=== PATIENT | male | born 1995 | race African-American/Black ===

== ENCOUNTER 2018-11-18 16:03 | Emergency (ER) | payer MEDICAID ==
[~2018-11-18] VITALS: Ht 185.4 cm; Wt 108.0 kg
[2018-11-18 16:25] VITALS: BP 135/79
--- NOTE | 2018-11-18 16:30 | NUR ---
ED Nurse Note: pt was brought in by ambulance for psychiatric evaluation, pt stated that he is seeking for psychiatric evaluation for recent diagnosis of schizophrenia, pt has been discharge from [facility] yesterday and was prescribed medication and pt stated he misplaced it and dosent remember was is the name of meds. ermd on bedside. will continue to monitor
[2018-11-18] MEDS ORDERED: SEROQUEL50 MG ORAL (16:47)
[2018-11-18] MEDS ORDERED: PROZAC10 MG ORAL (16:47)
--- NOTE | 2018-11-18 17:00 | NUR ---
ED Nurse Note: pt was able to give urine sample, blood drawn and was sent to [facility].
--- NOTE | 2018-11-18 17:11 | NUR ---
ED Nurse Note: attempted to call [facility] for pt previous discharge medication and charge nurse minna stated they cant give any information. claribel made aware.
[2018-11-18 17:15] LABS: APPEARANCE,URINE CLEAR; BILIRUBIN, URINE NEGATIVE (NEGATIVE); COLOR,URINE PALE YELLOW; GLUCOSE, URINE (UA) NEGATIVE (NEGATIVE); KETONES,URINE NEGATIVE (NEGATIVE); LEUKOCYTE ESTERASE ,URINE NEGATIVE (NEGATIVE); NITRITE,URINE NEGATIVE (NEGATIVE); PH,URINE 8 (4.5-8.0); PROTEIN,URINE NEGATIVE (NEGATIVE); UROBILINOGEN,URINE NORMAL MG/DL (0.0-1.0)
[2018-11-18 17:17] LABS: ANION GAP 9 mmol/L (5-15); BLOOD UREA NITROGEN 8 mg/dL (7-18); CALCIUM 9.3 MG/DL (8.5-10.1); CARBON DIOXIDE 30 MMOL/L (21-32); CHLORIDE 101 MMOL/L (98-107); CREATININE 1.1 MG/DL (0.55-1.30); POTASSIUM 3.8 MMOL/L (3.5-5.1); SODIUM 140 MMOL/L (136-145)
[2018-11-18 17:21] LABS: ALANINE AMINOTRANSFERASE 146 U/L (12-78); ALBUMIN 3.9 G/DL (3.4-5.0); ALBUMIN/GLOBULIN RATIO 1.1 (1.0-2.7); ALKALINE PHOSPHATASE 71 U/L (46-116); ASPARTATE AMINO TRANSFERASE 74 U/L (15-37); BILIRUBIN,TOTAL 0.5 MG/DL (0.2-1.0)
[2018-11-18] MEDS ORDERED: LORazepam 1mg tab ORAL ONE (17:30)
[2018-11-18 17:32] LABS: BASOPHILS % (AUTO) 0.7 % (0.0-2.0); EOSINOPHILS % (AUTO) 0.2 % (0.0-3.0); HEMATOCRIT 43.9 % (42.0-52.0); HEMOGLOBIN 14.7 G/DL (14.2-18.0); LYMPHOCYTES % (AUTO) 29.8 % (20.0-45.0); MEAN CORPUSCULAR VOLUME 92 FL (80-99); MONOCYTES % (AUTO) 8.9 % (1.0-10.0); NEUTROPHILS % (AUTO) 60.4 % (45.0-75.0); PLATELET COUNT 205 K/UL (150-450); RED BLOOD COUNT 4.76 M/UL (4.70-6.10); RED CELL DISTRIBUTION WIDTH 11.6 % (11.6-14.8); WHITE BLOOD COUNT 7.7 K/UL (4.8-10.8)
--- NOTE | 2018-11-18 17:40 | NUR ---
ED Nurse Note: pt medicated as ordered and tolerated well.
--- NOTE | 2018-11-18 19:00 | NUR ---
ED Nurse Note: pt belongings on locker 1
--- NOTE | 2018-11-18 19:01 | Emergency Room Report ---
History of Present Illness General Chief Complaint: Behavioral Complaint Source: Patient, EMS Present Illness HPI 23-year-old male presents ED for evaluation. Patient brought in by EMS from home. Patient notes history of schizophrenia and states that he has been hearing voices. Denies SI or HI. States that he was discharged from [facility] today. Was there for 6 days. States that he does not know what medications he was given. States that he lost his medications. Denies alcohol or drug use. No other aggravating relieving factors. Denies any other associated symptoms Allergies: Coded Allergies: No Known Allergies (Unverified , 11/18/18) Patient History Past Medical History: psych hx Past Surgical History: none Pertinent Family History: none Social History: Denies: smoking, alcohol use, drug use Immunizations: UTD Reviewed Nursing Documentation: PMH: Agreed; PSxH: Agreed Nursing Documentation-PMH Past Medical History: No History, Except For History Of Psychiatric Problem: Yes - BIPOLAR, SCHIZOAFFECTIVE, SCHIZOPHRENIA Review of Systems All Other Systems: negative except mentioned in HPI Physical Exam Vital Signs Date Time Temp Pulse Resp B/P (MAP) Pulse Ox O2 Delivery O2 Flow Rate FiO2 11/18/18 16:04 97.5 66 18 135/79 (97) 100 Room Air Sp02 EP Interpretation: reviewed, normal General Appearance: no apparent distress, alert, GCS 15, non-toxic Head: normocephalic Eyes: bilateral eye normal inspection, bilateral eye PERRL ENT: hearing grossly normal, normal pharynx, no angioedema, normal voice Neck: full range of motion, supple/symm/no masses Respiratory: chest non-tender, lungs clear, normal breath sounds, speaking full sentences Cardiovascular #1: regular rate, rhythm, no edema Cardiovascular #2: 2+ carotid (R), 2+ carotid (L), 2+ radial (R), 2+ radial (L) , 2+ dorsalis pedis (R), 2+ dorsalis pedis (L) Gastrointestinal: normal bowel sounds, non tender, soft, non-distended, no guarding, no rebound Rectal: deferred Genitourinary: normal inspection, no CVA tenderness Musculoskeletal: back normal, gait/station normal, normal range of motion, non- tender Neurologic: alert, oriented x3, responsive, motor strength/tone normal, sensory intact, speech normal Psychiatric: anxious, other - hearing voices Reflexes: 3+ bicep (R), 3+ bicep (L), 3+ tricep (R), 3+ tricep (L), 3+ knee (R) , 3+ knee (L) Skin: normal color, no rash, warm/dry, well hydrated Lymphatic: no adenopathy Medical Decision Making Diagnostic Impression: Primary Impression: Schizophrenia Qualified Codes: F20.9 - Schizophrenia, unspecified ER Course Hospital Course 23-year-old male presenting with hearing voices. Discharge from psychiatric facility yesterday. Denies SI or HI Differential diagnoses include: withdrawal symtpoms, overdose of psychiatric medications, drug ingestion, sepsis Clinical course Patient placed on stretcher. On cardiac/vascular sonographer. After initial history and physical I ordered labs, U. tox We attempted to contact [facility] the patient's recent hospitalization. Nursing sales clerk supervisor there stated that she could not access the records as they are not electronic. She does not recall the patient Labs-electrolytes normal, aspirin/Tylenol levels normal, EtOH level normal, U. tox negative Given Zyprexa, Ativan here. On reassessment patient states he does feel better. No SI or HI. No indication for emergent psychiatric treatment. Patient is comfortable being discharged at this time. Will provide him with prescription for Zyprexa and mental health referrals. i. I feel this is a highly complex case requiring extensive working including EKG/Rhythm strip, Xray/CT/US, Blood/urine lab work, repeat exams while in ED, and administration of strong opiates/narcotics for pain control, admission to hospital or close patient follow up. Diagnosis - schizophrenia Stable and discharged to home with Rx Zyprexa. Followup with PMD/psychiatrist. Return to ED if symptoms recur or worsen Labs Test 11/18/18 16:44 11/18/18 17:22 Urine Color Pale yellow Urine Appearance Clear Urine pH 8 (4.5-8.0) Urine Specific [place] 1.015 (1.005-1.035) Urine Protein Negative (NEGATIVE) Urine Glucose (UA) Negative (NEGATIVE) Urine Ketones Negative (NEGATIVE) Urine Blood Negative (NEGATIVE) Urine Nitrite Negative (NEGATIVE) Urine Bilirubin Negative (NEGATIVE) Urine Urobilinogen Normal MG/DL (0.0-1.0) Urine Leukocyte Esterase Negative (NEGATIVE) Sodium Level 140 MMOL/L (136-145) Potassium Level 3.8 MMOL/L (3.5-5.1) Chloride Level 101 MMOL/L (98-107) Carbon Dioxide Level 30 MMOL/L (21-32) Anion Gap 9 mmol/L (5-15) Blood Urea Nitrogen 8 mg/dL (7-18) Creatinine 1.1 MG/DL (0.55-1.30) Estimat Glomerular Filtration Rate > 60 mL/min (>60) Glucose Level 93 MG/DL (74-106) Calcium Level 9.3 MG/DL (8.5-10.1) Total Bilirubin 0.5 MG/DL (0.2-1.0) Aspartate Amino Transf (AST/SGOT) 74 U/L (15-37) Alanine Aminotransferase (ALT/SGPT) 146 U/L (12-78) Alkaline Phosphatase 71 U/L (46-116) Total Protein 7.6 G/DL (6.4-8.2) Albumin 3.9 G/DL (3.4-5.0) Globulin 3.7 g/dL Albumin/Globulin Ratio 1.1 (1.0-2.7) Salicylates Level 1.9 ug/mL (2.8-20) Urine Opiates Screen Negative (NEGATIVE) Acetaminophen Level < 2 MCG/ML (10-30) Urine Barbiturates Screen Negative (NEGATIVE) Phencyclidine (PCP) Screen Negative (NEGATIVE) Urine Amphetamines Screen Negative (NEGATIVE) Urine Benzodiazepines Screen Negative (NEGATIVE) Urine Cocaine Screen Negative (NEGATIVE) Urine Marijuana (THC) Screen Negative (NEGATIVE) Serum Alcohol < 3 mg/dL White Blood Count 7.7 K/UL (4.8-10.8) Red Blood Count 4.76 M/UL (4.70-6.10) Hemoglobin 14.7 G/DL (14.2-18.0) Hematocrit 43.9 % (42.0-52.0) Mean Corpuscular Volume 92 FL (80-99) Mean Corpuscular Hemoglobin 31.0 PG (27.0-31.0) Mean Corpuscular Hemoglobin Concent 33.6 G/DL (32.0-36.0) Red Cell Distribution Width 11.6 % (11.6-14.8) Platelet Count 205 K/UL (150-450) Mean Platelet Volume 6.9 FL (6.5-10.1) Neutrophils (%) (Auto) 60.4 % (45.0-75.0) Lymphocytes (%) (Auto) 29.8 % (20.0-45.0) Monocytes (%) (Auto) 8.9 % (1.0-10.0) Eosinophils (%) (Auto) 0.2 % (0.0-3.0) Basophils (%) (Auto) 0.7 % (0.0-2.0) Last Vital Signs Date Time Temp Pulse Resp B/P (MAP) Pulse Ox O2 Delivery O2 Flow Rate FiO2 11/18/18 16:25 97.5 66 18 135/79 100 Room Air Status: improved Disposition: HOME, SELF-CARE Condition: Stable Scripts Olanzapine* (ZYPREXA*) 5 Mg Tablet 5 MG ORAL DAILY for 10 Days, TAB Prov: Jose Herrera MD 11/18/18 Referrals: NOT CHOSEN IPA/,REFERRING (PCP) Jose Herrera MD Nov 18, 2018 19:01
--- NOTE | 2018-11-18 19:07 | NUR ---
HAND-OFF: Report given to Fiona EASLEY.
--- NOTE | 2018-11-18 19:08 | NUR ---
ED Nurse Note: Report received from TRACEE Adams. Pt resting comfortably. Showing no signs of acute distress. Will continue to monitor.
[2018-11-18] MEDS ORDERED: ZYPREXA5 MG ORAL (20:56)
[2018-11-18 21:10] VITALS: BP 129/76
--- NOTE | 2018-11-18 21:10 | NUR ---
ED Nurse Note: Pt cleared by ERMD, pt A/Ox4, VSS, showing no signs of acute distress. Discharge paperwork and prescriptions provided. Pt verbalized understanding of all instructions. All belongings taken with pt. Pt ambulated out of ED with steady gait. ID band removed.
== END 2018-11-18 21:10 | disposition home or self-care (01) ==
LOC: EDBD 16:03 → EMR 16:42
DX: F20.9 Schizophrenia, unspecified (principal); F31.9 Bipolar disorder, unspecified
CPT/HCPCS: 36415; 80053; 80307; 80329; 81003; 85025; 99283